=== PATIENT | male | born 1965 | race Caucasian/White ===

== ENCOUNTER 2019-05-12 10:37 | Emergency (ER) | payer OTHER ==
[~2019-05-12] VITALS: Ht 172.7 cm; Wt 76.2 kg
[2019-05-12] MEDS ORDERED: ASPIR 8181 MG PO (11:31)
[2019-05-12] MEDS ORDERED: BRILINTA60 MG PO (11:32)
[2019-05-12] MEDS ORDERED: LIPITOR20 MG PO (11:32)
== END 2019-05-12 14:22 | disposition home or self-care (01) ==
LOC: ER 10:37
DX: R42 Dizziness and giddiness (principal)